=== PATIENT | female | born 1995 | race Caucasian/White ===

== ENCOUNTER 2019-03-04 18:48 | Emergency (ER) | payer SELFPAY ==
[~2019-03-04] VITALS: Ht 152.4 cm; Wt 57.7 kg
[2019-03-04 19:00] VITALS: BP 90/56
--- NOTE | 2019-03-04 20:15 | NUR ---
PT REMAINS IN LOBBY WITH VSS. AWAITING BED IN ED.
--- NOTE | 2019-03-04 20:32 | NUR ---
PT AMBULATED TO BED #4
--- NOTE | 2019-03-04 20:40 | NUR ---
PT BIB SELF C/O DYSURIA. PT STATES 5/10 BURNING/STINGING PAIN W/ URINATION X4 DAYS W/ STATES FOUL SMELLING URINE. DENIES N/V/D, FEVER OR CHILLS. PT ACTING APPROPRIATLY, SPEAKING IN CLEAR AND COMPLETE SENTENCES. BREATHING EQUAL AND UNLABORED. LMP: 2 YRS AGO, PT STATES IMPLANT FOR BC. +SUPRAPUBIC TENDERNESS. SAFETY PRECAUTIONS IN PLACE. PENDING ER EVAL. WILL CONTINUE TO MONITOR. PMH: DENIES
[2019-03-04 21:30] VITALS: BP 101/63
--- NOTE | 2019-03-04 21:30 | NUR ---
Patient discharged with v/s stable. Patient acting appropriatly; speaking in clear and complete sentences; states she feels better to go home, pain 0/10. Written and verbal after care instructions given and explained. Patient alert, oriented and verbalized understanding of instructions. Ambulatory with steady gait. All questions addressed prior to discharge. ID band removed. Patient advised to follow up with PMD. Rx of Cipro given. Patient educated on indication of medication including possible reaction and side effects. Opportunity to ask questions provided and answered.
== END 2019-03-04 21:30 | disposition home or self-care (01) ==
LOC: MED 18:48
DX: N39.0 Urinary tract infection, site not specified (principal)
CPT/HCPCS: 81002; 81025; 99283

== ENCOUNTER 2021-02-22 02:32 | Emergency (ER) | payer MEDICAID ==
[~2021-02-22] VITALS: Ht 154.9 cm; Wt 57.6 kg
[2021-02-22 02:40] VITALS: BP 98/59
--- NOTE | 2021-02-22 02:50 | NUR ---
to ER bed 12.
--- NOTE | 2021-02-22 02:56 | NUR ---
Dr. Balderas with pt for MSE
[2021-02-22 02:57] VITALS: BP 98/59
--- NOTE | 2021-02-22 03:12 | NUR ---
Female Shot Dropper accompanied female patient for Pelvic Exam. Patient tolerated well, no samples collected at this time.
--- NOTE | 2021-02-22 03:54 | NUR ---
pt d/c with VSS. d/c education given. opportunity to ask questions given and answered. no rx given.
[2021-02-22] MEDS ORDERED: ACETAMINOPHEN EXTRA STRENGTH 500 MG TAB PO ONE (03:55)
== END 2021-02-22 03:54 | disposition home or self-care (01) ==
LOC: MED 02:32
DX: R10.2 Pelvic and perineal pain (principal)
CPT/HCPCS: 81002; 81025; 99284

== ENCOUNTER 2021-08-28 12:21 | Emergency (ER) | payer MEDICAID ==
[~2021-08-28] VITALS: Ht 152.4 cm; Wt 61.7 kg
[2021-08-28 12:23] VITALS: BP 119/46
--- NOTE | 2021-08-28 12:28 | NUR ---
PATIENT SENT TO LOBBY
--- NOTE | 2021-08-28 14:43 | NUR ---
25 years old female reports 7 weeks no care presents to er c/o right lower quzdrant pain with nausea, denies vaginal discharge.
[2021-08-28 14:50] LABS: APPEARANCE,URINE CLEAR (CLEAR); BILIRUBIN,URINE NEGATIVE (NEGATIVE); BLOOD, URINE NEGATIVE (NEGATIVE); COLOR,URINE YELLOW (YELLOW); LEUKOCYTE ESTERASE ,URINE NEGATIVE (NEGATIVE); NITRITE, URINE NEGATIVE (NEGATIVE); UGLUCOSE NEGATIVE (NEGATIVE)
[2021-08-28 16:20] LABS: BASOPHILS % (AUTO) 0.2 % (0.0-2.0); EOSINOPHILS # (AUTO) 0.1 K/uL (0-0.4); EOSINOPHILS % (AUTO) 0.9 % (0.0-4.0); HEMATOCRIT 37.5 % (36-48); HEMOGLOBIN 12.6 g/dL (12.0-16.0); LYMPHOCYTES # (AUTO) 2.3 K/uL (2.5-16.5); LYMPHOCYTES % (AUTO) 24.7 % (20.5-51.1); MEAN CORPUSCULAR HEMOGLOBIN 27 pg (27-31); MEAN CORPUSCULAR HGB CONC 34 g/dL (33-37); MEAN CORPUSCULAR VOLUME 81.9 fL (80-94); MONOCYTES # (AUTO) 0.9 K/uL (0.8-1.0); MONOCYTES % (AUTO) 9.7 % (1.7-9.3); NEUTROPHILS % (AUTO) 64.5 % (42.2-75.2); PLATELET COUNT (AUTO) 220 K/uL (140-450); RED BLOOD CELL COUNT(AUTO) 4.58 MIL/uL (4.20-5.40); WHITE BLOOD COUNT (AUTO) 9.2 K/uL (4.8-10.8)
[2021-08-28 16:54] LABS: ALBUMIN 3.6 g/dL (3.4-5.0); ANION GAP 13.6 (8-16); CARBON DIOXIDE 24.4 mmol/L (21-32); CREATININE 0.5 mg/dL (0.6-1.3); TOTAL BILIRUBIN 0.6 mg/dL (0.0-1.0)
[2021-08-28] MEDS ORDERED: ACETAMINOPHEN 325 MG TAB PO ONE (17:05)
--- NOTE | 2021-08-28 18:37 | NUR ---
PATIENT REASSESS NO PAIN DENIES NAUSEA VOMITING, NO ABDOMINAL PAIN.
[2021-08-28 19:35] VITALS: BP 105/56
--- NOTE | 2021-08-28 19:35 | NUR ---
Patient discharged with v/s stable. Written and verbal after care instructions given and explained. Patient verbalized understanding. Ambulatory with steady gait. All questions addressed prior to discharge. Advised to follow up with PMD.
--- NOTE | 2021-08-28 20:10 | NUR ---
The patient's care was reviewed and supervised by ESTHER LIMA RN.
== END 2021-08-28 19:35 | disposition home or self-care (01) ==
LOC: MED 12:21
DX: O26.891 Other specified pregnancy related conditions, first trimester (principal); R10.9 Unspecified abdominal pain
CPT/HCPCS: 36415; 76801; 80053; 81003; 81025; 84702; 85025; 86886; 86900; 86901; 99285; Q0092